=== PATIENT | male | born 1995 | race Hispanic/Latino ===

== ENCOUNTER 2019-10-05 17:14 | Emergency (ER) | payer SELFPAY ==
[~2019-10-05] VITALS: Ht 167.6 cm; Wt 140.0 kg
[2019-10-05 17:14] VITALS: BP 157/124
[~2019-10-05 17:14] MED LIST: CIPROFLOXACN500 MG PO; LORTAB 5/3255 MG PO; METRONIDAZOL500 MG PO; NAPROSYN500 MG PO
[2019-12-10] MEDS ORDERED: IBUPROFEN600 MG PO (01:26)
== END 2019-10-05 18:02 | disposition left against medical advice (07) | DRG 951 ==
LOC: ED 17:14 → LWOBS 18:01
DX: Z53.21 Procedure and treatment not carried out due to patient leaving prior to being seen by health care provider (principal)

== ENCOUNTER 2019-12-09 | Emergency (ER) | payer SELFPAY ==
[2019-12-10] MEDS ORDERED: IBUPROFEN600 MG PO ×2 (01:26)
== END 2019-12-10 01:45 | disposition home or self-care (01) | DRG 605 ==
DX: S50.812A Abrasion of left forearm, initial encounter (principal); S80.212A Abrasion, left knee, initial encounter; F17.210 Nicotine dependence, cigarettes, uncomplicated; V48.1XXA Car passenger injured in noncollision transport accident in nontraffic accident, initial encounter

== ENCOUNTER 2020-07-17 13:32 | Emergency (ER) | payer OTHER ==
[~2020-07-17] VITALS: Ht 170.2 cm; Wt 118.1 kg
[~2020-07-17 13:32] MED LIST changes: +IBUPROFEN600 MG PO
[2020-07-17] MEDS ORDERED: CYCLOBENZAPR5 MG PO ×2 (15:20)
[2020-07-17 15:30] VITALS: BP 137/67
== END 2020-07-17 15:30 | disposition home or self-care (01) | DRG 556 ==
LOC: ED 13:32
DX: M25.552 Pain in left hip (principal); F17.200 Nicotine dependence, unspecified, uncomplicated; V44.5XXA Car driver injured in collision with heavy transport vehicle or bus in traffic accident, initial encounter

== ENCOUNTER 2020-08-04 15:03 | Observation (INO) | payer SELFPAY ==
[~2020-08-04] VITALS: Ht 172.7 cm; Wt 131.8 kg
[~2020-08-04 15:03] MED LIST changes: +CYCLOBENZAPR5 MG PO
--- NOTE | 2020-08-04 15:40 | NUR ---
PT STABLE. MOM AT BEDSIDE. NO SIGNS OF DISTRESS.
[2020-08-04 15:41] LABS: HEMATOCRIT 47.6 % (39.0-50.0); HEMOGLOBIN 15.9 g/dl (14.0-18.0); IMMATURE GRANULOCYTES 0.3 % (0.0-5.0); MEAN CORPUSCULAR HGB 31.7 pG CALC (26.0-32.0); MEAN CORPUSCULAR HGB CONC 33.4 g/dL CAL (32.0-36.0); NEUT# 5.86 thou/uL (1.82-7.42); RED BLOOD COUNT 5.01 mill/uL (4.70-6.10); RED CELL DISTRI WIDTH 12.6 % (11.5-15.5)
[2020-08-04 16:04] LABS: BUN 7 mg/dL (9-20); CARBON DIOXIDE 26 mmol/l (22-30); CHLORIDE 103 mmol/l (95-108); CREATININE 0.8 mg/dL (0.7-1.3); GFR > 60 ML/MIN (>=60 (CALC)); GFR FOR AFR.AMER. > 60 ML/MIN (>=60 (CALC)); POTASSIUM 4.4 mmol/l (3.5-5.1)
[2020-08-04 16:08] LABS: ANION GAP 14 (6-22 (CALC)); BUN/CREATININE RATIO 9 (12-20 (CALC)); SODIUM 138 mmol/l (137-146)
--- NOTE | 2020-08-04 16:22 | NUR ---
SBAR PRINTED TO FLOOR
--- NOTE | 2020-08-04 16:35 | NUR ---
REPORT CALLED TO GLORIA ROTH IN ICU. PT REMAINS TACHY AND HYPERTENSIVE, WILL CONTINUE TO MONITOR.
[2020-08-04 16:50] VITALS: BP 158/70
[2020-08-04] MEDS ORDERED: EPIPEN 2-P0.3 MG/0.3 IM ×3 (16:50→17:03)
[2020-08-04] MEDS ORDERED: PREDNISONE50 MG PO ×3 (16:50→17:03)
--- NOTE | 2020-08-04 16:50 | NUR ---
Patient decides to leave AMA. Multiple attempts made to ecourage patient to remain here for continued treatment. Explained to patient all risks of leaving against medical advice including . Pt verbalized understanding of all risks. Pt also encouraged to return to [facility] at any time, especially if symptoms continue or become worse. Pt verbalized understanding.
[2020-08-05] MEDS ORDERED: BACTRIM DS1 TAB PO (09:18)
[2020-08-05] MEDS ORDERED: CLARITIN10 M1 PO (09:18)
== END 2020-08-04 16:50 | disposition left against medical advice (07) | DRG 916 ==
LOC: ED 15:03 → ED-I 16:07 → ED 16:20 → ICU 16:21
PROVIDERS: Family Medicine; ADMIT Internal Medicine; ATTEND Internal Medicine
DX: T78.3XXA Angioneurotic edema, initial encounter (principal); F17.200 Nicotine dependence, unspecified, uncomplicated; Z20.828 Contact with and (suspected) exposure to other viral communicable diseases

== ENCOUNTER 2020-08-04 19:55 | Observation (INO) | payer SELFPAY ==
[~2020-08-04] VITALS: Ht 172.7 cm; Wt 132.0 kg
[~2020-08-04 19:55] MED LIST changes: +EPIPEN 2-P0.3 MG/0.3 IM; +PREDNISONE50 MG PO
--- NOTE | 2020-08-04 19:58 | NUR ---
AMBULATED TO ROOM WITH STEADY GAIT
--- NOTE | 2020-08-04 20:34 | NUR ---
ST 126BPM,W/P/D SKIN CLEAR BILAT BREATH SOUNDS.CLEAR NORMAL SPEAKING VOICE.NO SWEATS NO PAIN OF ANY ORIGTIN.
--- NOTE | 2020-08-04 21:10 | NUR ---
PT C/O PAIN AT IV SITE L WRIST CATH DC'ED AT PT'S REQ NO REDNESS NO SWELLING NO STREAKS.RESTARTED SL IN LAC
--- NOTE | 2020-08-04 21:55 | NUR ---
PT IS DROWSY W/P/D SKIN NO DIFF BREATHING NORMAL SPEAKING VOICE.
--- NOTE | 2020-08-04 22:00 | NUR ---
PT REPORT TO SADIE CASTRO
--- NOTE | 2020-08-04 22:05 | NUR ---
PT TRANSPORTED TO ICU 5 IN STABLE CONDITION
--- NOTE | 2020-08-04 22:20 | NUR ---
TO ICU 5 VIA STRETCHER. ALERT. COOPERATIVE BUT STATES IS DROWSEY (HAD MASSIEL IN ER). AMBULATED TO BED (FROM STRETCHER) WITH STEADY GAIT. PT REPORTS HE STILL FEELS LIKE HIS TONGUE AND MOUTH ARE STILL A LITTLE SWOLLEN, BUT DENIES DIFFICULTY BREATHING OR SWALLOWING.HAD BEEN SEEN IN ER THIS AM FOR SAME COMPLAINT. DISCHARGED FROM ER AND RETURNED THIS EVENING FOR SAME. ON ADMISSION TO ICU, VERY LITTLE EDEMA NOTED. SPEECH CLEAR. GOOD HISTORIAN. NO DISTRESS NOTED.
--- NOTE | 2020-08-04 22:25 | NUR ---
WHEN CHANGING INTO GOWN, PT REPORTED HE HAS A CYST AT [place] AREA WHICH FEELS LIKE IT JUST BURST, PT HAS DISCOLORATION ON SHORTS FROM AREA-MOST OF IT IS CLEAR WITH RED TINGE TO IT. PT REPORTS HE HAS HAD AREA DRAINED 2 DIFFERENT TIMES. DENIES PAIN IN AREA.
[2020-08-04 22:30] VITALS: BP 128/63
--- NOTE | 2020-08-04 22:32 | NUR ---
CHEWING GUM WITHOUT DIFFICULTY AND TALKING ON PHONE. NO DISTRESS NOTED. DISCHARGED FROM PSYCH FACILITY 08/02/20. PT REPORTS HE RECEIVED 2 SHOTS THERE-UNSURE OF WHAT THEY WERE.
[2020-08-04 22:45] VITALS: BP 125/60
[2020-08-04 23:00] VITALS: BP 116/48
[2020-08-04 23:15] VITALS: BP 121/61
--- NOTE | 2020-08-04 23:15 | NUR ---
DOZING AT INTERVALS. HAD SEVERAL PHONE CALLS ON CELL PHONE. NO DISTRESS NOTED
[2020-08-04 23:30] VITALS: BP 113/54
[2020-08-05] VITALS: BP 115/55
--- NOTE | 2020-08-05 00:02 | NUR ---
BEDRESTING. RECEIVED SOLUMEDROL RX- TOLERATED WELL. BEDRESTING. LIGHTS OUT
--- NOTE | 2020-08-05 01:03 | NUR ---
BEDRESTING. LIGHTS OUT. RESP EVEN AND NONLABORED. NO DISTRESS NOTED. HEART RATE REAMINS GREATER THAN 100. NOTE: PT RECEIVED SOLUMEDROL 125, PROTONIX/PEPCID, DEXAMETHASONE, EPINEPHRINE AND RACEPINEPHRINE IN ER THIS AFTERNOON ABOUT 1545. ON THIS ER VISIT, PT RECEIVED BENADRYL.
[2020-08-05 02:00] VITALS: BP 106/49
--- NOTE | 2020-08-05 02:00 | NUR ---
PERIODICALLY O2 SAT DECREASED TO 88% AND PULSE LESS THAN 100. THIS LASTED SECONDS, THEN RETURNED TO HIS "NORMAL" RATES. PT READILY AWAKENS AND HAS CLEAR SPEECH AND DENIES BREATHING OR SWALLOWING DIFFICULTIES.
[2020-08-05 04:00] VITALS: BP 111/64
--- NOTE | 2020-08-05 04:00 | NUR ---
BEDRESTING. RESP EVEN AND NONLABORED. NO DISTRESS NOTED.
[2020-08-05 05:00] LABS: HEMATOCRIT 45.5 % (39.0-50.0); HEMOGLOBIN 15.1 g/dl (14.0-18.0); IMMATURE GRANULOCYTES 0.7 % (0.0-5.0); MEAN CELL VOLUME 96.2 fL CALC (80.0-100.0); MEAN CORPUSCULAR HGB 31.9 pG CALC (26.0-32.0); MEAN CORPUSCULAR HGB CONC 33.2 g/dL CAL (32.0-36.0); NEUT# 11.9 thou/uL (1.82-7.42); RED BLOOD COUNT 4.73 mill/uL (4.70-6.10); RED CELL DISTRI WIDTH 12.5 % (11.5-15.5)
[2020-08-05 05:16] LABS: ANION GAP 9 (6-22 (CALC)); BUN 6 mg/dL (9-20); BUN/CREATININE RATIO 9 (12-20 (CALC)); CARBON DIOXIDE 23 mmol/l (22-30); CHLORIDE 109 mmol/l (95-108); CREATININE 0.6 mg/dL (0.7-1.3); GFR > 60 ML/MIN (>=60 (CALC)); GFR FOR AFR.AMER. > 60 ML/MIN (>=60 (CALC)); POTASSIUM 4.5 mmol/l (3.5-5.1); SODIUM 137 mmol/l (137-146)
--- NOTE | 2020-08-05 05:48 | NUR ---
SOLUMEDROL GIVEN RX. ASKED ABOUT URINATING. DECLINED NEED-"FILLED UP A BOTTLE DOWNSTAIRS" URINAL AT BEDSIDE. IV FLUIDS INFUSING RX. IV SITE APPEARS WNL. NO DISTRESS NOTED
[2020-08-05 06:45] VITALS: BP 131/59
--- NOTE | 2020-08-05 07:30 | NUR ---
PT RESTING IN BED, EASILY AWAKENED. LUNGS CLEAR, IV INFUSING.
--- NOTE | 2020-08-05 08:52 | NUR ---
PT SITTING UP IN BED, WATCHING TV, AND TALKING ON PHONE TO . STATES IS GOING TO BE BRINGING CLOTHES FOR DISCHARGE. NO NOTED SWELLING OF TONGUE, NO RESPIRATORY COMPLAINT
[2020-08-05] MEDS ORDERED: CLARITIN10 M1 PO (09:18)
[2020-08-05] MEDS ORDERED: BACTRIM DS1 TAB PO (09:18)
[2020-08-05 09:32] VITALS: BP 149/67
--- NOTE | 2020-08-05 11:27 | NUR ---
PT DISCHARGED WITH INST. AND RX INSTRUCTIONS, PT AMBLATORY FROM ICU TO CAR WITH DATA BASE DESIGN ANALYST. WORK NOTE GIVEN FOR YESTERDAY AND DAY.
== END 2020-08-05 11:30 | disposition home or self-care (01) | DRG 916 ==
LOC: ED 19:55 → ED-I 20:21 → ED 20:33 → ICU 20:34
PROVIDERS: ADMIT Internal Medicine; ATTEND Internal Medicine
DX: T78.3XXA Angioneurotic edema, initial encounter (principal); L05.01 Pilonidal cyst with abscess; F17.210 Nicotine dependence, cigarettes, uncomplicated; F32.9 Major depressive disorder, single episode, unspecified; R51 Headache; F17.200 Nicotine dependence, unspecified, uncomplicated; Z20.828 Contact with and (suspected) exposure to other viral communicable diseases

== ENCOUNTER 2020-09-29 18:52 | Emergency (ER) | payer SELFPAY ==
[~2020-09-29] VITALS: Ht 172.7 cm; Wt 136.0 kg
[~2020-09-29 18:52] MED LIST changes: +BACTRIM DS1 TAB PO; +CLARITIN10 M1 PO
[2020-09-29 18:55] VITALS: BP 146/82
== END 2020-09-29 19:26 | disposition left against medical advice (07) | DRG 313 ==
LOC: ED 18:52
DX: R07.9 Chest pain, unspecified (principal); F41.9 Anxiety disorder, unspecified; F17.200 Nicotine dependence, unspecified, uncomplicated; Z20.828 Contact with and (suspected) exposure to other viral communicable diseases

== ENCOUNTER 2021-04-14 17:08 | Emergency (ER) | payer SELFPAY ==
[~2021-04-14] VITALS: Ht 172.7 cm; Wt 100.0 kg
[2021-04-14 17:33] VITALS: BP 138/92
== END 2021-04-14 17:38 | disposition left against medical advice (07) | DRG 951 ==
LOC: ED 17:08
DX: Z91.19 Patient's noncompliance with other medical treatment and regimen (principal)

== ENCOUNTER 2021-05-27 14:40 | Inpatient (IN) | payer SELFPAY ==
[~2021-05-27] VITALS: Ht 172.7 cm; Wt 108.0 kg
--- NOTE | 2021-05-27 15:00 | NUR ---
PATIENT AMBULATED TO ROOM WITH STEDY GAIT AND PHYSICIAN NOTIFIED OF PATIENT STATUS
[2021-05-27 15:45] LABS: HEMOGLOBIN 16.2 g/dl (14.0-18.0); IMMATURE GRANULOCYTES 0.2 % (0.0-5.0); MEAN CELL VOLUME 94.8 fL CALC (80.0-100.0); MEAN CORPUSCULAR HGB 32.7 pG CALC (26.0-32.0); MEAN CORPUSCULAR HGB CONC 34.5 g/dL CAL (32.0-36.0); NEUT# 9.65 thou/uL (1.82-7.42); RED BLOOD COUNT 4.96 mill/uL (4.70-6.10); RED CELL DISTRI WIDTH 12.6 % (11.5-15.5)
[2021-05-27 16:02] LABS: ALBUMIN 4.2 g/dL (3.2-5.0); ALKALINE PHOSPHATASE 74 u/l (38-126); ANION GAP 14 (6-22 (CALC)); BILIRUBIN, TOTAL 0.8 mg/dL (0.0-1.4); BUN 12 mg/dL (9-20); BUN/CREATININE RATIO 19 (12-20 (CALC)); CARBON DIOXIDE 26 mmol/l (22-30); CHLORIDE 97 mmol/l (95-108); CREATININE 0.6 mg/dL (0.7-1.3); GFR > 60 ML/MIN (>=60 (CALC)); GFR FOR AFR.AMER. > 60 ML/MIN (>=60 (CALC)); SGOT/AST 25 u/l (17-59); SODIUM 133 mmol/l (137-146); TOTAL PROTEIN 7.6 g/dL (6.3-8.2)
[2021-05-27 16:14] LABS: POTASSIUM 3.5 mmol/l (3.5-5.1)
--- NOTE | 2021-05-27 16:30 | NUR ---
PT IS VERY NERVOUS AND ANXIOUS WAITING FOR RESULTS
--- NOTE | 2021-05-27 18:00 | NUR ---
PT SLEEPING, AWAITING SURGEON
--- NOTE | 2021-05-27 20:30 | NUR ---
GAVE REPORT TO TOLL BRIDGE OPERATOR, PT GOING TO OR FOR HERNIA REPAIR BY dR. TALAMANTES, CONSENT UNSIGNED ON CHART DUE TO PT NEEDING EDUCATION ON PROCEDURE
[2021-05-27 23:30] VITALS: BP 139/68
[2021-05-27 23:45] VITALS: BP 143/75
[2021-05-28] VITALS (7 sets, daily range): BP systolic 113–149; BP diastolic 64–79
--- NOTE | 2021-05-28 00:41 | NUR ---
RECEIVED PATIENT TO ROOM 278 VIA STRETCHER FROM PACU S/P LEFT INGUINAL HERNIA REPAIR. PATIENT IS ALERT AND ORIENTED X3. ANDORRAN SPEAKING. ABLE TO MAKE NEEDS KNOWN. RESPIRATIONS EASY ON 2L N/C. HR REGULAR. BS ABSENT (S/P SURGERY). ABDOMINAL TENDERNESS TO LEFT QUADRANTS. C/O PAIN 8/10 TO LEFT INGUINAL AREA. DILAUDID 1 MG AND ZOFRAN 4MG IV GIVEN WITH POSITIVE EFFECT. PENA CATHETER IN PLACE AND DRAINING TABITHA URINE TO GRAVITY. ICE CHIPS OFFERED AND EATEN. EDUCATED PATIENT ON PLAN OF CARE AND DIET INCREASING TOLERATED. IVF INFUSING FROM PACU. CURRENTLY RUNNING AT 75 PER MED/SURG ORDER. ASSESSMENT/ADMISSION PAPERWORK COMPLETED AND CHARTED. BED IN LOW POSITION. CALL LIGHT WITHIN REACH.
--- NOTE | 2021-05-28 04:11 | NUR ---
PATIENT AWAKE AND C/O PAIN 8/10 TO SCROTAL/INGUINAL AREA. COLD COMPRESS OFFERED AND RECEIVED ALONG WITH 1MG DILAUDID IV. LABS DRAWN. BED IN LOW POSITION. CALL LIGHT WITHIN REACH.
[2021-05-28 04:41] LABS: HEMATOCRIT 44.7 % (39.0-50.0); HEMOGLOBIN 14.9 g/dl (14.0-18.0); IMMATURE GRANULOCYTES 0.1 % (0.0-5.0); MEAN CELL VOLUME 97.6 fL CALC (80.0-100.0); MEAN CORPUSCULAR HGB 32.5 pG CALC (26.0-32.0); MEAN CORPUSCULAR HGB CONC 33.3 g/dL CAL (32.0-36.0); NEUT# 10.8 thou/uL (1.82-7.42); RED BLOOD COUNT 4.58 mill/uL (4.70-6.10); RED CELL DISTRI WIDTH 12.8 % (11.5-15.5)
--- NOTE | 2021-05-28 06:15 | NUR ---
PT C/O ABDOMINAL PAIN AFTER CONFUMING SOME APPLE JUICE. PATIENT HAS BEEN EDUCATED WITH REINFORCEMENT ABOUT CONSUMPTION OF LIQUIDS/FOOD. EDUCATED PATIENT ON IMPORTANCE OF ALLOWING BODY TO AWAKE FROM SURGERY AND TO INTAKE FLUIDS SLOWLY. ALSO WAS EDUCATED ON SPLINTING INCISIONAL WOUND WHEN COUGHING. WILL CONTINUE PATIENT ON ICE CHIPS AND CLEAR LIQUIDS UNTIL FEELING BETTER AND TOLERATING INTAKE. PENA CATHETER D/C'D WITH 10CC FLUID FROM BALLOON. PATIENT TOLERATED WELL. BED IN LOW POSITION. CALL LIGHT WITHIN REACH.
--- NOTE | 2021-05-28 07:52 | NUR ---
SHIFT CHANGE REPORT, PT SLEEPING BUT AWAKENED TO VERBAL STIMULI, ORIENTED, C/O SHARP LEFT-SIDED ABD PAIN AT 7/10 AND REQUEST PAIN BED. CONCERNS ADDRESSED. PT ASKED IF HE COULD GO OUTSIDE IN A W/C TO SMOKE AND WAS INFORMED/ADVISED/EDUCATED ON HOSPITAL'S POLICY, HE WAS FURTHER INFORMED THAT IF HE SHOULD MAKE THE DECISION TO GO OUTSIDE TO SMOKE HE WOULD BE DISCHARGING HIMSELF AND WOULD NOT BE ALLOWED BCK ON UNIT, HE WAS OFFERED A NICOTINE PATCH BUT QUESTIONED WHETHER IT WOULD WORK. HE WAS INFORMED ALL MEDICATIONS HAVE DIFFERENT EFFECT ON DIFFERENT PEOPLE BUT HE SHOULD TRY IT; HE AGREED AND WAS INFORMED NURSE WOULD CONTACT MD FOR ORDER. IVF INFUSING, DRESSINGS TO ABD CDI, CALL GRACIA IN REACH AND BED LOCKED IN LOWEST POSITION.
--- NOTE | 2021-05-28 08:21 | NUR ---
Patient is screened for PT intervention and no needs are identified at this time
--- NOTE | 2021-05-28 09:59 | NUR ---
PT EDUCATED ON IMPORTANCE OF AMBULATING POST SURGERY AND RISKS OF PNEUMONIA IF NOT INCREASING ACTIVITY. DR TALAMANTES ROUNDED AND DISCUSED D/C PLAN WITH PT WHO IS STILL QUESTIONING ABOUT SMOKING. PT REQUESTED TO SHOWER BUT DR HENRY ADVISED NO SHOWERING UNTIL TOMORROW WHEN HE CAN REMOVE DRESSINGS TO ABD. WILL CONTINUE TO MONITOR.
--- NOTE | 2021-05-28 14:30 | NUR ---
PT SLEEPING, AWAKENED TO TACTILE STIMULI AND ENCOURAGED TO URINATE BEFORE D/C HOME, HE INFORMED NURSE HE COULD NOT URINATE THEREFORE CHARLES ADVISED HIM HE COULD NOT GO HOME UNTIL HE EMPTIED HIS BLADDER. HE WAS ASSISTED IN STANDING POSITION AND ADVISED TO RUN H2O IN BR TO ASSIST BULT HE CONTINUED TO STATE HE DID NOT WANT TO URINATE AND IF HIS MOTHER WAS HERE SHE WOULD ASSIST HIM, HE WAS ADVISED HE WOULD BE CATHETERISED IF HE WAS UNABLE TO URINATE FREELY BUT HE STATED HE DOES NOT WANT THAT SO HE WENT INTO BR AND URINATED IN SHOWER TO "SHOW YOU THAT I DID". HE NOW WANTS TO LEAVE STAT SO HE CAN GO OUTSIDE TO SMOKE. P.N. (IT WAS VITALLY IMPORTANT FOR PT TO URINATE PENA CATHETER WAS REMOVED @ 0500 AND UP UNTIL THIS TIME HE HAD NOT EMPTIED HIS BLADDER)
--- NOTE | 2021-05-28 14:52 | NUR ---
PT ANXIOUS TO LEAVE BEGGING FOR W/C TO LEAVE NOW TO GO OUTSIDE TO SMOKE ADVISED TO WAIT TILL RIDE ARRIVES BUT REFUUSED, GOT BELIGERANT AND KEPT ON REPEATING "I NEED A WHEEL CHAIR" WHILE STANDING IN THE HALLWAY HOLDING BAG OF BELONGINGS WHICH IS ALREADY TOO HEAVY TO BE LIFTING ADVISED BY SURGEON. PT'S MOTHER WAS CALLED WHO STATED SHE WOULD BE ON HER WAY TO RECEIVE HIM BUT HE IGNORED THAT MESSAGE COMPLETELY AND JUST WANTED TO GO OUTSIDE TO SMOKE NOW. HE WAS EVENTUALLY OFFERED W/C BY DRILLER [facility]RA[facility]ING WHO TRANSPORTED HIM OFF UNIT.
--- NOTE | 2021-05-28 15:12 | NUR ---
Discharge instructions given. Patient verbalizes understanding of same. Discharged in stable condition via Wheelchair to Home with mother. All belongings sent with pt.
[2021-05-29] MEDS ORDERED: MOTRIN400 MG/TAB PO (23:13)
[2021-05-29] MEDS ORDERED: PERCOCET 5/325M1 TAB PO (23:14)
== END 2021-05-28 14:55 | disposition home or self-care (01) | DRG 352 ==
LOC: ED 14:40 → ED-I 18:10 → ED 18:35 → MS2 18:36
PROVIDERS: Emergency Medicine; ADMIT Internal Medicine; ATTEND Internal Medicine
PROC: 0YU60JZ Supplement Left Inguinal Region with Synthetic Substitute, Open Approach (ICD-10-PCS; principal; 2021-05-27)
PROC: 0YJ64ZZ Inspection of Left Inguinal Region, Percutaneous Endoscopic Approach (ICD-10-PCS; 2021-05-27)
PROC: 3E0234Z Introduction of Serum, Toxoid and Vaccine into Muscle, Percutaneous Approach (ICD-10-PCS; 2021-05-28)
DX: K40.30 Unilateral inguinal hernia, with obstruction, without gangrene, not specified as recurrent (principal); F15.10 Other stimulant abuse, uncomplicated; F41.9 Anxiety disorder, unspecified; F17.200 Nicotine dependence, unspecified, uncomplicated; Z88.0 Allergy status to penicillin; Z23 Encounter for immunization; Z20.822 Contact with and (suspected) exposure to COVID-19
CPT/HCPCS: J2710; Q9967

== ENCOUNTER 2021-05-29 22:31 | Emergency (ER) | payer SELFPAY ==
[~2021-05-29] VITALS: Ht 172.7 cm; Wt 111.0 kg
[2021-05-29 23:08] LABS: HEMATOCRIT 41.9 % (39.0-50.0); HEMOGLOBIN 13.4 g/dl (14.0-18.0); IMMATURE GRANULOCYTES 0.4 % (0.0-5.0); MEAN CELL VOLUME 99.3 fL CALC (80.0-100.0); MEAN CORPUSCULAR HGB 31.8 pG CALC (26.0-32.0); NEUT# 8.16 thou/uL (1.82-7.42); RED BLOOD COUNT 4.22 mill/uL (4.70-6.10); RED CELL DISTRI WIDTH 12.9 % (11.5-15.5)
[2021-05-29] MEDS ORDERED: MOTRIN400 MG/TAB PO (23:13)
[2021-05-29] MEDS ORDERED: PERCOCET 5/325M1 TAB PO (23:14)
[2021-05-29 23:26] LABS: ALBUMIN 3.1 g/dL (3.2-5.0); ALKALINE PHOSPHATASE 63 u/l (38-126); AMYLASE 32 u/l (30-110); ANION GAP 10 (6-22 (CALC)); BILIRUBIN, TOTAL 0.3 mg/dL (0.0-1.4); BUN 10 mg/dL (9-20); BUN/CREATININE RATIO 15 (12-20 (CALC)); CARBON DIOXIDE 30 mmol/l (22-30); CHLORIDE 98 mmol/l (95-108); CREATININE 0.7 mg/dL (0.7-1.3); GFR > 60 ML/MIN (>=60 (CALC)); GFR FOR AFR.AMER. > 60 ML/MIN (>=60 (CALC)); LIPASE 46 u/l (23-300); POTASSIUM 3.8 mmol/l (3.5-5.1); SGOT/AST 17 u/l (17-59); SODIUM 134 mmol/l (137-146); TOTAL PROTEIN 5.9 g/dL (6.3-8.2)
[2021-05-30 01:08] LABS: URINE BILIRUBIN - DIPSTICK NEGATIVE (NEGATIVE); URINE BLOOD DIPSTICK NEGATIVE (NEGATIVE); URINE COLOR YELLOW; URINE GLUCOSE - DIPSTICK NEGATIVE (NEGATIVE); URINE KETONE NEGATIVE (NEGATIVE); URINE LEUK ESTERASE NEGATIVE (NEGATIVE); URINE PH 6.5 (4.5-8.0); URINE PROTEIN - DIPSTICK NEGATIVE (NEG-TRACE); URINE SPECIFIC GRAVITY <=1.005; URINE UROBILINOGEN - DIPSTICK 0.2 E.U./dL (0.2)
[2021-05-30 01:11] LABS: URINE NITRITE - DIPSTICK NEGATIVE (Negative)
[2021-05-30 01:51] VITALS: BP 139/65
== END 2021-05-30 02:02 | disposition home or self-care (01) | DRG 948 ==
LOC: ED 22:31
PROVIDERS: Family Medicine
DX: G89.18 Other acute postprocedural pain (principal); F15.10 Other stimulant abuse, uncomplicated; F17.210 Nicotine dependence, cigarettes, uncomplicated; Z98.890 Other specified postprocedural states
CPT/HCPCS: Q9967

== ENCOUNTER 2021-06-02 23:07 | Emergency (ER) | payer SELFPAY ==
[~2021-06-02] VITALS: Ht 172.7 cm; Wt 109.0 kg
[~2021-06-02 23:07] MED LIST changes: +MOTRIN400 MG/TAB PO; +PERCOCET 5/325M1 TAB PO
[2021-06-03 00:38] VITALS: BP 143/74
== END 2021-06-03 00:30 | disposition home or self-care (01) | DRG 951 ==
LOC: ED 23:07
DX: Z48.02 Encounter for removal of sutures (principal); L76.82 Other postprocedural complications of skin and subcutaneous tissue; F17.210 Nicotine dependence, cigarettes, uncomplicated; Y83.8 Other surgical procedures as the cause of abnormal reaction of the patient, or of later complication, without mention of misadventure at the time of the procedure; Z53.20 Procedure and treatment not carried out because of patient's decision for unspecified reasons

== ENCOUNTER 2021-08-25 14:44 | Emergency (ER) | payer SELFPAY ==
[~2021-08-25] VITALS: Ht 172.7 cm; Wt 116.0 kg
[2021-08-25] MEDS ORDERED: BACTRIM DS1 TAB PO (15:52)
[2021-08-25 16:24] VITALS: BP 164/72
== END 2021-08-25 16:29 | disposition home or self-care (01) | DRG 603 ==
LOC: ED 14:44
PROC: 0H98XZZ Drainage of Buttock Skin, External Approach (ICD-10-PCS; principal; 2021-08-25)
DX: L05.91 Pilonidal cyst without abscess (principal); F17.210 Nicotine dependence, cigarettes, uncomplicated

== ENCOUNTER 2023-11-18 20:37 | Emergency (ER) | payer SELFPAY ==
[~2023-11-18] VITALS: Ht 172.7 cm; Wt 145.0 kg
[2023-11-18 21:54] LABS: BASO% 0.5 % (0-3); EOS% 4.2 % (0-8); HEMATOCRIT 46.2 % (39.0-50.0); HEMOGLOBIN 16.1 g/dl (14.0-18.0); IMMATURE GRANULOCYTES 0.4 % (0.0-5.0); LYMPH% 32.6 % (15-41); MEAN CELL VOLUME 97.5 fL CALC (80.0-100.0); MEAN CORPUSCULAR HGB CONC 34.8 g/dL CAL (32.0-36.0); MONO% 9.8 % (2-13); NEUT# 4.43 thou/uL (1.82-7.42); NEUT% 52.5 % (42-76); RED BLOOD COUNT 4.74 mill/uL (4.70-6.10); RED CELL DISTRI WIDTH 11.7 % (11.5-15.5)
[2023-11-18] MEDS ORDERED: BENZONATATE200 MG PO (22:34)
[2023-11-18 22:41] VITALS: BP 142/99
== END 2023-11-18 22:45 | disposition home or self-care (01) | DRG 153 ==
LOC: ED 20:37
PROVIDERS: Family Medicine
DX: J06.9 Acute upper respiratory infection, unspecified (principal); Z72.0 Tobacco use; Z20.822 Contact with and (suspected) exposure to COVID-19

== ENCOUNTER 2024-10-11 19:45 | Inpatient (IN) | payer SELFPAY ==
[~2024-10-11] VITALS: Ht 172.7 cm; Wt 148.9 kg
[~2024-10-11 19:45] MED LIST changes: +BENZONATATE200 MG PO
[2024-10-11] MEDS ORDERED: ISOVUE-300 (Iopamidol) 100 ML SDV IV ONE (20:45)
[2024-10-11] MEDS ORDERED: Levofloxacin 750 mg Premix 150 ML IV ONE (20:50)
[2024-10-11] MEDS ORDERED: KETOROLAC TROMETHAMINE 15 MG/ML SDV IV ONE (20:50)
[2024-10-11] MEDS ORDERED: ONDANSETRON HCl 4 MG/2 ML SDV IV ONE (20:50)
[2024-10-11] MEDS ORDERED: HYDROmorphone HCL 2 MG/AMP IV ONE (20:50)
[2024-10-11 21:19] LABS: BASO% 0.4 % (0-3); EOS% 3.9 % (0-8); HEMATOCRIT 43.8 % (39.0-50.0); HEMOGLOBIN 15.1 g/dl (14.0-18.0); IMMATURE GRANULOCYTES 0.1 % (0.0-5.0); LYMPH% 21.3 % (15-41); MEAN CELL VOLUME 97.8 fL CALC (80.0-100.0); MEAN CORPUSCULAR HGB 33.7 pG CALC (26.0-32.0); MEAN CORPUSCULAR HGB CONC 34.5 g/dL CAL (32.0-36.0); NEUT# 6.61 thou/uL (1.82-7.42); NEUT% 65.3 % (42-76); RED BLOOD COUNT 4.48 mill/uL (4.70-6.10); RED CELL DISTRI WIDTH 11.9 % (11.5-15.5)
[2024-10-11 21:27] LABS: CREATININE 0.9 mg/dL (0.7-1.3)
[2024-10-11 21:28] LABS: ALBUMIN 4.6 g/dL (3.2-5.0); BILIRUBIN, TOTAL 0.6 mg/dL (0.2-1.3); TOTAL PROTEIN 8.1 g/dL (6.3-8.2)
[2024-10-11] MEDS ORDERED: HYDROmorphone HCL 2 MG/AMP IV PRN (23:50)
[2024-10-11] MEDS ORDERED: ONDANSETRON 4 MG/TAB ODT PO PRN (23:50)
[2024-10-11] MEDS ORDERED: ACETAMINOPHEN 500 MG TAB PO PRN (23:55)
[2024-10-12] MEDS ORDERED: CLARIFY DOSE PO PRN (00:10)
[2024-10-12] MEDS ORDERED: SODIUM CHLORIDE 0.9% 1,000 ML IV PRN (05:30)
[2024-10-12] MEDS ORDERED: MAGNESIUM HYDROXIDE 30 ML UDC PO PRN (05:30)
[2024-10-12] MEDS ORDERED: KETOROLAC TROMETHAMINE 30 MG/ML SDV IV PRN (05:35)
[2024-10-12] MEDS ORDERED: ACETAMINOPHEN 325 MG/TAB PO PRN (05:35)
[2024-10-12] MEDS ORDERED: HYDROcodone 7.5 MG/Acetaminophen 325 MG/COMBO PO PRN (05:35)
[2024-10-12] MEDS ORDERED: LORazepam 2 MG/ML IV PRN (05:35)
[2024-10-12] MEDS ORDERED: HYDROmorphone HCL 2 MG/AMP IV PRN ×2 (05:35→08:45)
[2024-10-12] MEDS ORDERED: chlordiazePOXIDE HCL 25 MG CAP PO PRN (05:35)
[2024-10-12] MEDS ORDERED: ONDANSETRON HCl 4 MG/2 ML SDV IV ONE (07:20)
[2024-10-12] MEDS ORDERED: HYDROmorphone HCL 2 MG/AMP IV ONE (07:20)
[2024-10-12 07:45] VITALS: BP 125/76
[2024-10-12 07:50] VITALS: BP 125/76
[2024-10-12] MEDS ORDERED: DiphenhydrAMINE HCL 50 MG/ML SDV IV PRN (08:45)
[2024-10-12] MEDS ORDERED: NICOTINE TRANSDERMAL 21 MG/PATCH TD SCH (09:00)
[2024-10-12 16:41] VITALS: BP 120/56
[2024-10-12 17:46] VITALS: BP 142/80
[2024-10-12 17:54] VITALS: BP 107/50
[2024-10-12] MEDS ORDERED: DOXYCYCLINE HYCLATE 100 MG/CAP PO SCH (18:00)
[2024-10-12] MEDS ORDERED: VANCOMYCIN HCL 1 GM in SODIUM CHLORIDE 0.9% 250 ML IV SCH ×2 (19:00→21:00)
[2024-10-12] MEDS ORDERED: VANCOMYCIN HCL 1 GM/VIAL IV ONE (19:44)
[2024-10-12] MEDS ORDERED: SODIUM CHLORIDE 0.9% 250 ML IV ONE ×3 (19:45→20:37)
[2024-10-12] MEDS ORDERED: VANCOMYCIN HCL 2 GM in SODIUM CHLORIDE 0.9% 500 ML IV SCH (20:00)
[2024-10-12] MEDS ORDERED: ENOXAPARIN SODIUM 40 MG/0.4 ML SYR SC SCH (21:00)
[2024-10-13] VITALS (9 sets, daily range): BP systolic 100–166; BP diastolic 45–93
[2024-10-13] MEDS ORDERED: HYDROmorphone HCL 2 MG/AMP IV SCH (04:30)
[2024-10-13 05:18] LABS: BASO% 0.4 % (0-3); EOS% 3.7 % (0-8); IMMATURE GRANULOCYTES 0.1 % (0.0-5.0); LYMPH% 30.3 % (15-41); MEAN CORPUSCULAR HGB 34.5 pG CALC (26.0-32.0); MEAN CORPUSCULAR HGB CONC 34.1 g/dL CAL (32.0-36.0); MONO% 11.6 % (2-13); NEUT# 3.76 thou/uL (1.82-7.42); NEUT% 53.9 % (42-76); RED BLOOD COUNT 4.06 mill/uL (4.70-6.10); RED CELL DISTRI WIDTH 11.9 % (11.5-15.5)
[2024-10-13 05:26] LABS: BILIRUBIN, TOTAL 0.4 mg/dL (0.2-1.3); CHOLESTEROL HDL RATIO 3.6 (<4.4 (CALC)); CREATININE 0.9 mg/dL (0.7-1.3); MAGNESIUM 2.3 mg/dL (1.6-2.3); POTASSIUM 4.3 mmol/l (3.5-5.1)
[2024-10-13 05:32] LABS: ALBUMIN 3.5 g/dL (3.2-5.0); TOTAL PROTEIN 6.2 g/dL (6.3-8.2)
[2024-10-13] MEDS ORDERED: oxyCODONE 10MG/APAP 325 MG 1 COMBO TAB PO PRN (08:25)
[2024-10-13] MEDS ORDERED: MORPHINE SULFATE 4 MG/ML VIAL IV PRN (08:55)
[2024-10-13] MEDS ORDERED: VANCOMYCIN HCL 2 GM in SODIUM CHLORIDE 0.9% 500 ML IV SCH (09:00)
[2024-10-13] MEDS ORDERED: MULTIPLE VITAMIN TABLET PO SCH (09:00)
[2024-10-13] MEDS ORDERED: FOLIC ACID 1 MG/TAB PO SCH (09:00)
[2024-10-13] MEDS ORDERED: THIAMINE HCL 100 MG TAB PO SCH (09:00)
[2024-10-13] MEDS ORDERED: VANCOMYCIN HCL 1,250 MG in SODIUM CHLORIDE 0.9% 225 ML IV SCH (09:00)
[2024-10-13] MEDS ORDERED: cefTRIAXone SODIUM 2 GM in SODIUM CHLORIDE 0.9% 100 ML IV SCH (11:00)
[2024-10-13] MEDS ORDERED: Polyethylene Glycol 3350 17 GM/PKT PO SCH (14:30)
[2024-10-13] MEDS ORDERED: Zaleplon 5 MG/CAP PO PRN (16:25)
[2024-10-13] MEDS ORDERED: LORazepam 2 MG/ML IV PRN (19:45)
[2024-10-14 05:40] LABS: BASO% 0.5 % (0-3); EOS% 5.4 % (0-8); HEMATOCRIT 39.8 % (39.0-50.0); HEMOGLOBIN 13.8 g/dl (14.0-18.0); IMMATURE GRANULOCYTES 0.1 % (0.0-5.0); LYMPH% 19.1 % (15-41); MEAN CELL VOLUME 98.3 fL CALC (80.0-100.0); MEAN CORPUSCULAR HGB 34.1 pG CALC (26.0-32.0); MEAN CORPUSCULAR HGB CONC 34.7 g/dL CAL (32.0-36.0); MONO% 7.4 % (2-13); NEUT# 5.35 thou/uL (1.82-7.42); NEUT% 67.5 % (42-76); RED BLOOD COUNT 4.05 mill/uL (4.70-6.10); RED CELL DISTRI WIDTH 11.7 % (11.5-15.5)
[2024-10-14 05:52] LABS: ALBUMIN 3.7 g/dL (3.2-5.0); CREATININE 0.7 mg/dL (0.7-1.3); POTASSIUM 4.2 mmol/l (3.5-5.1); TOTAL PROTEIN 6.5 g/dL (6.3-8.2)
[2024-10-14 05:56] LABS: BILIRUBIN, TOTAL 0.6 mg/dL (0.2-1.3)
[2024-10-14] MEDS ORDERED: FAMOTIDINE 10MG/ML 2ML SDV IV ONE (08:32)
[2024-10-14] MEDS ORDERED: BUPIVACAINE HCL PF 0.5 % 50 MG/10 ML SDV ONE (08:33)
[2024-10-14] MEDS ORDERED: BUPIVACAINE 133 MG/10 ML VIAL IJ ONE (08:33)
[2024-10-14] MEDS ORDERED: SODIUM CHLORIDE 20 ML/VIAL SDV ONE (08:34)
[2024-10-14] MEDS ORDERED: LIDOcaine HCl 1% (Local Anesth.) 20 ML VIAL ONE (08:38)
[2024-10-14] MEDS ORDERED: HYDROmorphone HCL 2 MG/AMP IV PRN (09:10)
[2024-10-14] MEDS ORDERED: SODIUM CHLORIDE 1,000 ML BTL IR ONE (10:05)
[2024-10-14] MEDS ORDERED: STERILE WATER FOR IRRIGATION 1,000 ML BTL IR ONE (10:05)
[2024-10-14] MEDS ORDERED: MORPHINE SULFATE 4 MG/ML VIAL IV PRN (12:30)
[2024-10-14] MEDS ORDERED: DEXAMETHASONE SODIUM PHOSPHATE PF 10 MG/ML SDV IV ONE (14:15)
[2024-10-14] MEDS ORDERED: MIDAZOLAM HCL 2 MG/2 ML VIAL IV ONE (14:15)
[2024-10-14] MEDS ORDERED: DiphenhydrAMINE HCL 50 MG/ML SDV IV ONE (14:15)
[2024-10-14] MEDS ORDERED: PROPOFOL 200 MG/20 ML VIAL IV ONE (14:15)
[2024-10-14 19:11] VITALS: BP 143/62
[2024-10-14] MEDS ORDERED: SENNOSIDES-Docusate Sodium 1 COMBO TAB PO SCH (21:00)
[2024-10-15 03:49] VITALS: BP 132/66
[2024-10-15 07:31] VITALS: BP 120/64
[2024-10-15 08:38] LABS: BASO% 0.2 % (0-3); EOS% 0.1 % (0-8); HEMATOCRIT 44.1 % (39.0-50.0); HEMOGLOBIN 15.2 g/dl (14.0-18.0); IMMATURE GRANULOCYTES 0.3 % (0.0-5.0); LYMPH% 11.2 % (15-41); MEAN CORPUSCULAR HGB 34.5 pG CALC (26.0-32.0); MEAN CORPUSCULAR HGB CONC 34.5 g/dL CAL (32.0-36.0); MONO% 3.1 % (2-13); NEUT# 9.31 thou/uL (1.82-7.42); NEUT% 85.1 % (42-76); RED BLOOD COUNT 4.41 mill/uL (4.70-6.10); RED CELL DISTRI WIDTH 11.7 % (11.5-15.5)
[2024-10-15 08:54] LABS: ALBUMIN 4.1 g/dL (3.2-5.0); BILIRUBIN, TOTAL 0.4 mg/dL (0.2-1.3); CREATININE 0.8 mg/dL (0.7-1.3); MAGNESIUM 2.3 mg/dL (1.6-2.3); POTASSIUM 4.2 mmol/l (3.5-5.1); TOTAL PROTEIN 7.2 g/dL (6.3-8.2)
[2024-10-15] MEDS ORDERED: LACTULOSE 20 GM/30 ML UDC PO SCH (09:00)
[2024-10-15] MEDS ORDERED: ALPRAZolam 1 MG/TAB PO PRN (10:55)
[2024-10-15] MEDS ORDERED: PREGABALIN 75 MG/CAP PO SCH (11:30)
[2024-10-15] MEDS ORDERED: HYDROmorphone HCL 2 MG/AMP IV PRN (12:00)
[2024-10-15] MEDS ORDERED: HYDROcodone/Acetaminophen 1 COMBO TAB PO PRN (13:00)
[2024-10-15] MEDS ORDERED: METHOCARBAMOL 500 MG/TAB PO SCH (13:00)
[2024-10-15 15:49] VITALS: BP 129/63
[2024-10-15 18:39] VITALS: BP 112/63
[2024-10-16 03:52] VITALS: BP 125/72
[2024-10-16 05:33] LABS: BASO% 0.5 % (0-3); EOS% 2.4 % (0-8); IMMATURE GRANULOCYTES 0.4 % (0.0-5.0); LYMPH% 32.7 % (15-41); MEAN CELL VOLUME 99.7 fL CALC (80.0-100.0); MEAN CORPUSCULAR HGB 34.4 pG CALC (26.0-32.0); MEAN CORPUSCULAR HGB CONC 34.5 g/dL CAL (32.0-36.0); MONO% 8.3 % (2-13); NEUT# 4.21 thou/uL (1.82-7.42); NEUT% 55.7 % (42-76); RED BLOOD COUNT 3.81 mill/uL (4.70-6.10); RED CELL DISTRI WIDTH 12.1 % (11.5-15.5)
[2024-10-16 05:35] LABS: HEMOGLOBIN 13.1 g/dl (14.0-18.0)
[2024-10-16 05:55] LABS: ALBUMIN 3.4 g/dL (3.2-5.0); BILIRUBIN, TOTAL 0.3 mg/dL (0.2-1.3); CREATININE 0.7 mg/dL (0.7-1.3); MAGNESIUM 2.1 mg/dL (1.6-2.3); TOTAL PROTEIN 6.2 g/dL (6.3-8.2)
[2024-10-18] MEDS ORDERED: PERCOCET 5/325M1 TAB PO (11:26)
[2024-10-20] MEDS ORDERED: PERCOCET 5/325M1 TAB PO (09:59)
[2024-10-20] MEDS ORDERED: CEPHALEXIN500 MG PO (10:34)
[2024-10-20] MEDS ORDERED: BACTRIM DS1 TAB PO (10:35)
== END 2024-10-16 07:38 | disposition left against medical advice (07) | DRG 571 ==
LOC: ED 19:45 → ED-I 23:31 → ED 23:52 → ED-I 23:53 → MS2 10-12 03:27
PROVIDERS: Emergency Medicine; ADMIT Student in an Organized Health Care Education/Training Program; ATTEND Student in an Organized Health Care Education/Training Program
PROC: 0J990ZZ Drainage of Buttock Subcutaneous Tissue and Fascia, Open Approach (ICD-10-PCS; principal; 2024-10-12)
PROC: 0JB90ZZ Excision of Buttock Subcutaneous Tissue and Fascia, Open Approach (ICD-10-PCS; 2024-10-13)
DX: L05.01 Pilonidal cyst with abscess (principal); Z68.43 Body mass index [BMI] 50.0-59.9, adult; E66.01 Morbid (severe) obesity due to excess calories; F41.9 Anxiety disorder, unspecified; F10.10 Alcohol abuse, uncomplicated; F15.10 Other stimulant abuse, uncomplicated; F17.200 Nicotine dependence, unspecified, uncomplicated; Z98.890 Other specified postprocedural states
CPT/HCPCS: C9290; J1100; J1171; J1200; J1650; J2060; J3370; Q9967